=== PATIENT | male | born 1965 | race Caucasian/White ===

== ENCOUNTER → 2018-01-30 | Outpatient (CLI) | payer OTHER ==
[~2018-01-30] MED LIST: ESOM20CA PO; METH500T37 PO; METO-551 PO; SIMV20TA2 PO
--- NOTE | 2018-01-30 10:41 | DIAGNOSTIC IMAGING REPORT ---
ABDOMINAL ULTRASOUND, RIGHT UPPER QUADRANT HISTORY: Periumbilical abdominal pain.. COMPARISON: CT of the abdomen and pelvis July 06, 2013. FINDINGS: Liver is sonographically normal. There is no biliary ductal dilatation. There are no gallstones. No gallbladder wall thickening is present. The pancreas is within normal limits. There is no right hydronephrosis. Note is made of a 3.2 cm right renal cyst. IMPRESSION: 1. No significant abnormality identified within the right upper quadrant. 2. 3.2 cm right renal cyst. Electronically signed by: Ramos Sneed M.D. 01/30/2018 10:40 AM Dictated Date/Time: 01/30/2018 10:37 AM
[2018-01-30 12:25] LABS: BASO ABS # 0.06 K/uL (0-0.2); EOS % 4.3 %; EOS ABS # 0.25 K/uL (0-0.5); HEMATOCRIT 43.7 % (42-52); HEMOGLOBIN 15.6 g/dL (14.0-18.0); IG# 0.02 K/uL (0.00-0.02); LYMPH % 26.3 %; LYMPH ABS # 1.52 K/uL (1.2-3.4); MEAN CORPUSCULAR HEMOGLOBIN 31.8 pg (25-34); MEAN CORPUSCULAR HGB CONC 35.7 g/dl (32-36); MEAN PLATELET VOLUME 11.9 fL (7.4-10.4); MONO % 7.8 %; MONO ABS # 0.45 K/uL (0.11-0.59); NEUT % 60.3 %; NEUT ABS # 3.47 K/uL (1.4-6.5); PLATELET COUNT 141 K/uL (130-400); RED CELL DISTRIBUTION WIDTH CV 13.2 % (11.5-14.5); RED CELL DISTRIBUTION WIDTH SD 42.7 fL (36.4-46.3); WHITE BLOOD COUNT 5.77 K/uL (4.8-10.8)
[2018-01-30 12:38] LABS: ALBUMIN 3.9 gm/dl (3.4-5.0); ALT/SGPT 18 U/L (12-78); AST/SGOT 15 U/L (15-37); BLOOD UREA NITROGEN 11 mg/dl (7-18); CALCIUM 9.3 mg/dl (8.5-10.1); CARBON DIOXIDE 31 mmol/L (21-32); CREATININE 1.01 mg/dl (0.60-1.40); GLUCOSE 84 mg/dl (70-99); LIPASE 89 U/L (73-393); POTASSIUM 4.3 mmol/L (3.5-5.1); SODIUM 137 mmol/L (136-145)
[2018-01-30 12:41] LABS: ALKALINE PHOSPHATASE 83 U/L (45-117); TOTAL PROTEIN 6.9 gm/dl (6.4-8.2)
== END | disposition home or self-care (01) ==
LOC: C.ULTR 09:42
PROVIDERS: ATTEND Registered Nurse
DX: R10.33 Periumbilical pain (principal); Z79.1 Long term (current) use of non-steroidal anti-inflammatories (NSAID)

== ENCOUNTER → 2018-05-06 | Outpatient (CLI) | payer OTHER ==
[~2018-05-06] MED LIST changes: +ASPI81TA28 PO; +ATV/1 PO; +BACL10TA PO; -ESOM20CA PO; +FLUO40CA8 PO; +GABA-113 PO; -METH500T37 PO; -METO-551 PO; +METO50TA16 PO; +NTRGSL/4 UT; +NXM/40 PO; +OMEG10007 PO; +PRAZ1CAP10 PO; -SIMV20TA2 PO; +SIMV40TA2 PO
== END | disposition home or self-care (01) ==
LOC: C.PATHSPEC 17:18
PROVIDERS: ATTEND Urology
DX: N28.1 Cyst of kidney, acquired (principal)